=== PATIENT | female | born 1995 | race African-American/Black ===

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

== ENCOUNTER 2017-09-11 20:36 | Observation (INO) | payer OTHER ==
[2017-09-11] MEDS ORDERED: IV RINGERS,LACTATED 1000ML 1,000 ML IV (20:46)
[2017-09-11 21:21] LABS: BILIRUBIN,URINE NEGATIVE (NEG); CLARITY,URINE CLEAR; COLOR,URINE YELLOW; GLUCOSE,URINE NEGATIVE (NEG); NITRITE,URINE NEGATIVE (NEG); PROTEIN,URINE NEGATIVE (NEG-TRACE); UROBILINOGEN,URINE 0.2 mg/dL (0.2 mg/dL)
[2017-09-11 21:28] LABS: AMPHETAMINE/METHAMPHETAMINE NEG (NEG); BARBITURATES NEG (NEG); BENZODIAZEPINES NEG (NEG); CANNABINOIDS POS (NEG); COCAINE NEG (NEG); ETHANOL, URINE NEG (NEG); METHADONE NEG (NEG); OPIATES NEG (NEG); PHENCYCLIDINE NEG (NEG)
[2017-09-11 21:31] LABS: AMNIO PT NEGATIVE; NEG OBC AMNIO NEG; POS OBC AMNIO POS
[2017-09-11 21:36] LABS: BACTERIA,URINE MODERATE /HPF (0-FEW); RBC,URINE OCC /HPF (0-2); SQUAMOUS EPITHELIAL CELL,UR MOD /LPF
[2017-09-11] MEDS: hydrOXYzine PAMOATE 25 MG CAPSULE PO (21:50)
== END 2017-09-11 22:40 | disposition home or self-care (01) ==
LOC: 3 SO LND 20:36
DX: O62.9 Abnormality of forces of labor, unspecified (principal); Z3A.25 25 weeks gestation of pregnancy
CPT/HCPCS: 36415; 80307; 81001; 84112; 87086; G0378; G0379; Q0177

== ENCOUNTER 2018-01-28 14:45 | Emergency (ER) | payer OTHER ==
[~2018-01-28] VITALS: Ht 152.4 cm; Wt 62.1 kg
[2018-01-28 15:59] VITALS: BP 116/68
== END 2018-01-28 17:14 | disposition left against medical advice (07) ==
LOC: ER 14:45
DX: M54.5 Low back pain (principal); Z53.21 Procedure and treatment not carried out due to patient leaving prior to being seen by health care provider